=== PATIENT | female | born 1985 | race American Indian/Alaskan Native ===

== ENCOUNTER 2016-12-26 09:37 | Emergency (ER) | payer MEDICAID ==
--- NOTE | 2016-12-26 12:17 | Emergency Department Report ---
ED General Adult HPI - General Chief complaint: Chest Pain Stated complaint: CHEST PAIN Source: patient Mode of arrival: Ambulatory Limitations: No Limitations - History of Present Illness Initial comments: 31-year-old female comes in for chest pain and dizziness. She reports that she' s been having chest discomfort and dizziness for the last 3-4 days. Pain is intermittent for about 3-4 days she describes the pain as sharp stabbing to the center of her chest. She admits to nausea and vomiting but that has ceased since yesterday she denies any sweating or shortness of breathing and no pain and inspiration. Patient does report that she has stopped smoking cigarettes 5 days ago. She had a headache but has gone away she reports she was still nauseated. She denies any change in fluid intake she is able to eat and hold down food. She has no past medical history, takes no medications. -: days(s) (3-4) - Related Data Previous Rx's Medication Instructions Recorded Last Taken Type Acetaminophen/Codeine [Tylenol #3] 1 tab PO Q6H PRN #10 tab 10/17/16 Unknown Rx Penicillin Vk [Veetids TAB] 500 mg PO QID #56 tablet 10/17/16 Unknown Rx Ibuprofen [Motrin 600 MG tab] 600 mg PO Q8H PRN #30 tablet 12/26/16 Unknown Rx Allergies Allergy/AdvReac Type Severity Reaction Status Date / Time No Known Allergies Allergy Verified 10/17/16 02:21 ED Review of Systems ROS: Stated complaint: CHEST PAIN Other details as noted in HPI Constitutional: denies: chills, fever Eyes: denies: eye pain, eye discharge, vision change ENT: denies: ear pain, throat pain Respiratory: denies: cough, shortness of breath, wheezing Cardiovascular: chest pain. denies: palpitations, dyspnea on exertion, orthopnea, edema Endocrine: no symptoms reported Gastrointestinal: nausea, vomiting (not currently) Genitourinary: denies: urgency, dysuria, discharge ED Past Medical Hx - Past Medical History Previous Medical History?: No - Surgical History Past Surgical History?: No - Social History Smoking Status: Current Every Day Smoker Substance Use Type: Alcohol - Medications Home Medications: Home Medications Medication Instructions Recorded Confirmed Last Taken Type Acetaminophen/Codeine [Tylenol #3] 1 tab PO Q6H PRN #10 tab 10/17/16 Unknown Rx Penicillin Vk [Veetids TAB] 500 mg PO QID #56 tablet 10/17/16 Unknown Rx Ibuprofen [Motrin 600 MG tab] 600 mg PO Q8H PRN #30 tablet 12/26/16 Unknown Rx ED Physical Exam - General Limitations: No Limitations General appearance: alert, in no apparent distress - Head Head exam: Present: atraumatic, normocephalic - Eye Eye exam: Present: normal appearance, PERRL, EOMI - ENT ENT exam: Present: mucous membranes moist, TM's normal bilaterally - Neck Neck exam: Present: normal inspection - Respiratory Respiratory exam: Present: normal lung sounds bilaterally. Absent: respiratory distress, chest wall tenderness - Cardiovascular Cardiovascular Exam: Present: regular rate, normal rhythm, normal heart sounds - GI/Abdominal GI/Abdominal exam: Present: soft. Absent: distended, tenderness, guarding ED Course Vital Signs 12/26/16 10:03 Temperature 98.3 F Pulse Rate 66 Blood Pressure 106/62 O2 Sat by Pulse 100 Oximetry ED Medical Decision Making - Medical Decision Making Patient's evaluated by this provider fast track we will give patient Zofran 4 mg as well as Tylenol mg now. Discussed with patient most likely her dizziness from recently discontinuing smoking. EKG was normal sinus rhythm. Patient has no list PCP will refer her to a director trust. Patient verbalized understanding Critical care attestation.: If time is entered above; I have spent that time in minutes in the direct care of this critically ill patient, excluding procedure time. ED Disposition Clinical Impression: Chest pain Qualifiers: Chest pain type: unspecified Qualified Code(s): R07.9 - Chest pain, unspecified Nausea & vomiting Qualifiers: Vomiting type: unspecified Vomiting Intractability: unspecified Qualified Code( s): R11.2 - Nausea with vomiting, unspecified Disposition: DISCHARGED TO HOME OR SELFCARE Is pt being admited?: No Does the pt Need Aspirin: No Condition: Stable Instructions: Chest Pain (ED) Additional Instructions: Recommend follow-up with the primary care provider. Prescriptions: Ibuprofen [Motrin 600 MG tab] 600 mg PO Q8H PRN #30 tablet PRN Reason: Pain Referrals: PRIMARY CARE, [Primary Care Provider] - 3-5 Days RADHA MICHAEL MD [Staff Physician] - 3-5 Days Forms: Work/School Release Form(ED)
[2016-12-26] MEDS ORDERED: ZOFRAN ODT PO ONE (12:34)
[2016-12-26] MEDS ORDERED: TYLENOL PO ONE (12:34)
[2016-12-26 13:47] VITALS: BP 102/68
== END 2016-12-26 13:47 | disposition home or self-care (01) ==
LOC: ED 09:37
DX: R07.89 Other chest pain (principal); R42 Dizziness and giddiness; F17.200 Nicotine dependence, unspecified, uncomplicated
CPT/HCPCS: 93005; 93010; 99282; Q0162